=== PATIENT | female | born 1995 ===

== ENCOUNTER 2018-10-19 05:27 | Day surgery (SDC) | payer BC ==
[2018-09-29 12:48] LABS: APPEARANCE,URINE SLIGHTLY-CLOUDY; BILIRUBIN,URINE NEGATIVE (NEGATIVE); COLOR,URINE YELLOW; GLUCOSE, URINE NEGATIVE (NEGATIVE); KETONES,URINE NEGATIVE (NEGATIVE); LEUKOCYTE ESTERASE,URINE NEGATIVE (NEGATIVE); NITRITE,URINE NEGATIVE (NEGATIVE); PROTEIN,URINE NEGATIVE (NEGATIVE); URINE SPECIFIC GRAVITY 1.028; UROBILINOGEN,URINE NEGATIVE mg/dL (<2.0)
[2018-09-29 12:52] LABS: HEMATOCRIT 41.2 % (36.0-47.0); HEMOGLOBIN 14.1 g/dL (12.0-15.5); MEAN CORPUSCULAR HGB CONC 34.2 g/dL (32.0-36.0); MEAN CORPUSCULAR VOLUME 85 fl (80-97); PLATELET COUNT 347 10^3/uL (150-450); RED BLOOD COUNT 4.85 10^6/uL (3.72-5.28); RED CELL DISTRIBUTION WIDTH 13.8 % (11.5-14.0); WHITE BLOOD COUNT 11.2 10^3/uL (4.0-10.5)
[~2018-10-19 05:27] MED LIST: LACTATED RINGERS 1000 ML IV PRN; LIDOCAINE 0.5% INJ-PF (5 MG/ML) 50 ML SDV SUBCUT PRN
[2018-10-19 06:21] LABS: HEMATOCRIT 40.2 % (36.0-47.0); HEMOGLOBIN 13.5 g/dL (12.0-15.5); MEAN CORPUSCULAR HEMOGLOBIN 28.6 pg (27.0-33.4); MEAN CORPUSCULAR HGB CONC 33.6 g/dL (32.0-36.0); MEAN CORPUSCULAR VOLUME 85 fl (80-97); PLATELET COUNT 308 10^3/uL (150-450); RED BLOOD COUNT 4.71 10^6/uL (3.72-5.28); RED CELL DISTRIBUTION WIDTH 13.8 % (11.5-14.0); WHITE BLOOD COUNT 8.5 10^3/uL (4.0-10.5)
[2018-10-19 06:28] LABS: AMORPHOUS SEDIMENT,URINE TRACE /HPF; APPEARANCE,URINE CLOUDY; BILIRUBIN,URINE NEGATIVE (NEGATIVE); COLOR,URINE YELLOW; GLUCOSE, URINE NEGATIVE (NEGATIVE); KETONES,URINE NEGATIVE (NEGATIVE); LEUKOCYTE ESTERASE,URINE NEGATIVE (NEGATIVE); NITRITE,URINE NEGATIVE (NEGATIVE); PROTEIN,URINE NEGATIVE (NEGATIVE); URINE SPECIFIC GRAVITY 1.018; UROBILINOGEN,URINE NEGATIVE mg/dL (<2.0)
[2018-10-19] MEDS ORDERED: HYDROMORPHONE HCL INJ/PF 2 MG/ML AMPULE ONE (07:11)
[2018-10-19] MEDS ORDERED: MIDAZOLAM 2 MG/2 ML INJ ONE (07:11)
[2018-10-19] MEDS ORDERED: FENTANYL CITRATE INJ/PF 250 MCG/5 ML AMPULE ONE (07:11)
[2018-10-19] MEDS ORDERED: PROPOFOL INJ 200 MG/20 ML VIAL IV ONE (07:12)
[2018-10-19] MEDS ORDERED: ACETAMINOPHEN 325 MG TABLET ONE (07:14)
[2018-10-19] MEDS ORDERED: PROMETHAZINE HCL INJ 25 MG/1 ML VIAL IV PRN (08:01)
[2018-10-19] MEDS ORDERED: MORPHINE SULFATE 10 MG/ML INJ IV PRN (08:01)
[2018-10-19] MEDS ORDERED: DIPHENHYDRAMINE HCL 50 MG/ML VIAL IV PRN (08:01)
[2018-10-19] MEDS ORDERED: FENTANYL CITRATE INJ/PF 100 MCG/2 ML AMPUL IV PRN ×3 (08:01)
[2018-10-19] MEDS: LORAZEPAM INJ 2 MG/1 ML VIAL ONE ×2 (09:29→09:39)
[2018-10-19] MEDS ORDERED: IBUPROFEN 800 MG TABLET PO PRN (09:58)
[2018-10-19] MEDS ORDERED: MORPHINE SULFATE 10 MG/ML INJ IM PRN (09:58)
[2018-10-19] MEDS ORDERED: OXYCODONE-ACETAMINOPHEN 5-325 MG TABLET PO PRN ×2 (09:59)
--- NOTE | 2018-10-19 11:24 | OPERATIVE REPORT E ---
Operative Report NAME: JOSE DAVID JADE : 1995 AGE: 22Y DATE OF SURGERY: 10/19/2018 ROOM: PREOPERATIVE DIAGNOSIS: RIGHT OVARIAN CYST. POSTOPERATIVE DIAGNOSIS: RIGHT OVARIAN DERMOID. OPERATION: Diagnostic laparoscopy with right salpingo-oophorectomy and removal of dermoid tumor. SURGEON: DIETER APARICIO M.D. HEEL SEAT LASTER: Margie Sherman, formerly [facility] surgical supervisor. ANESTHESIA: Dr. Corby Boyle with general. FINDINGS: Left ovary appeared completely normal. The right ovary, however, was enlarged, approximately 15 cm with kind of a double lobed appearance to it. The right ovary laparoscopically did have some different densities noted and part of the density was noted to be quite hard. Once the right ovary was extracted, it was opened and there was several pieces of bony material as well as fatty material and hair, consistent with a dermoid. COMPLICATIONS: None. ESTIMATED BLOOD LOSS: 50 mL TISSUE REMOVED OR ALTERED: Right fallopian tube and ovary. PROCEDURE: The patient was taken to the operating room, prepared and draped in a normal sterile fashion in the dorsal lithotomy position. Under sterile condition A Ceballos catheter was placed to gravity and a sterile speculum was then placed in the vagina. The cervix was prepped with Betadine. IT was grasped on the anterior lip with a single-tooth tenaculum. A Hulka clamp was then placed for uterine manipulation without difficulty. The speculum and tenaculum were then removed. Gloves were changed. Attention was turned to the upper portion of the case. A 5 mm incision was made at the umbilicus, through which a Veress needle was introduced and the abdomen was inflated with approximately 2 liters of CO2 gas. The Veress needle was removed and a 5 mm port was placed through this incision and the camera was introduced. The patient was placed in steep Trendelenburg with the above findings noted. Another 5 mm port was placed in the left quadrant, approximately 10 cm on that side of the umbilicus and the bowel was swept away with a blunt probe. The size of the ovary was noted and palpated several times with the blunt probe and noted that there were some hard areas of the ovary consistent with a dermoid. Several pictures were taken. The left ovary was carefully inspected and found to be normal in appearance. I felt that due to the complexity of this cyst and the size of it that removal of the entire ovary would be better than simply attempting a cystectomy. A 12 mm port was then placed on the right side of the umbilicus so that we could place a large EndoCatch bag for removal of the ovary. A LigaSure was then introduced into the abdomen and beginning with the location of the IP ligament, we began coagulation of the IP ligament close the ovary and fallopian tube and then following the contours of the ovary and fallopian tube, continued with transection until the ovary was freed from the IP ligament. We then continued this incision with the LigaSure until the utero-ovarian ligament was also severed and the ovary was completely freed from the adnexa. The surgical defect was inspected and found to be completely hemostatic. The LigaSure was then removed and the EndoCatch bag was placed through the 12 mm port. The EndoCatch bag was deployed and the specimen was placed in this bag using atraumatic forceps. The specimen was then bagged and this bag was brought up through the port incision. I then went to this side of the table on the right and began morcellating of the specimen within the bag for removal through this port site. The port site was slightly expanded using a scalpel for the skin and Stoddard's to extend the fascial incision. We then could decompress the specimen, again inside the bag, using a Annelise clamp and this is when we noted the large amounts of fatty mucinous type of material that was extruding from this specimen. We continued morcellating in this fashion using suction and breaking up the cyst as best we could until the specimen was decompressed enough to be removed in whole, within the bag. The bag was then taken to the sterile specimen table and the specimen was removed from the bag and opened completely and we noted the hard bony areas and there was a deciduous tooth as well as a lot of hair within the specimen. We then changed gloves and returned to the patient where the fascial incision 12 mm port was closed using 0-Vicryl. We re-inflated the abdomen and introduced the camera once more to ascertain hemostasis and noted that it was so. There were no other findings of significance and no signs of endometriosis so we concluded the case and the skin was closed at the 3 sites using 4-0 Vicryl. The patient tolerated this procedure well. Sponge, lap, and needle counts were correct x2 and the patient was taken to recovery in stable condition. DICTATING PHYSICIAN: DIETER APARICIO M.D. [id number] PHY#: [id number] ID: [id number] JOB#: [id number] ACCT: [id number] cc:DIETER APARICIO M.D. >
[2018-10-19 11:47] VITALS: BP 117/80
[2018-10-19] MEDS ORDERED: FLUCONAZOLE 100 MG TABLET PO ONE (12:00)
[2018-10-19] MEDS ORDERED: DEXAMETHASONE SOD PHOSPHATE INJ 4 MG/1 ML VIAL ONE (19:09)
[2018-10-19] MEDS ORDERED: GLYCOPYRROLATE 1 MG/5 ML SYRINGE ONE (19:09)
[2018-10-19] MEDS ORDERED: ROCURONIUM BROMIDE INJ 50 MG/5 ML VIAL IV ONE (19:09)
[2018-10-19] MEDS ORDERED: ONDANSETRON HCL INJ/PF 4 MG/2 ML SDV ONE (19:09)
[2018-10-19] MEDS ORDERED: NEOSTIGMINE METHYLSULFATE 10 MG/10 ML VIAL ONE (19:09)
== END 2018-10-19 11:40 | disposition home or self-care (01) ==
LOC: OROUT 05:27
PROVIDERS: ATTEND Obstetrics & Gynecology
DX: D27.0 Benign neoplasm of right ovary (principal); N83.8 Other noninflammatory disorders of ovary, fallopian tube and broad ligament; R10.2 Pelvic and perineal pain; Z32.02 Encounter for pregnancy test, result negative; G40.909 Epilepsy, unspecified, not intractable, without status epilepticus; J45.909 Unspecified asthma, uncomplicated; Z87.891 Personal history of nicotine dependence; Z79.899 Other long term (current) drug therapy; Z79.51 Long term (current) use of inhaled steroids
CPT/HCPCS: 86900; 86901; 36415 ×2; 86850; 85027 ×2; 81005; 81025; 81001; 88307 ×2; 88311; 58661; J2250; J3490 ×2; J1100; J3010; J2710; J2060; J2405; J2704; 840; J1170